=== PATIENT | male | born 1935 | race Caucasian/White ===

== ENCOUNTER 2017-01-08 11:25 | Outpatient (CLI) | payer MEDICARE, OTHER ==
[2013-04-13 09:49] VITALS: BP 144/80
[2017-01-08 11:49] LABS: MEAN CORPUSCULAR HEMOGLOBIN 29.6 pg (28.0-34.0); MEAN CORPUSCULAR VOLUME 89.7 fl (80.0-100.0)
[2017-01-08 12:09] LABS: eGFR (African) > 60; eGFR (Non-African) > 60
--- NOTE | 2017-01-08 16:51 | Diagnostic Imaging Report ---
[facility] [address] [facility].[address] [address] Report Submission Date: January 08, 2017 4:07:41 PM CDT Patient Study Name: AURORA BOSTON Date: January 08, 2017 12:17:49 PM CDT Modality Type: CT\SR Gender: M Description: CT NECK SOFT TISSUE W/ : 37 Institution: [facility] Physician: DELROY HERNANDEZ CT of the neck soft tissue technique with IV contrast Clinical history: Sore throat for 3 days with difficulty swallowing , pain on the right side of the neck . 90 mL omnipaque 350 Radiation dose DLP 299 There is 2.7 cm mass with an enhanced capsule and somewhat low density center in the right tonsillar region and slight superior to it consistent with either tumor or a abscess. No significant compromise of the airway. Nasopharyngeal region is normal. Aryepiglottic folds are normal. Submandibular and parotid glands are normal. Impression: 2.7 cm a mass in the right side of the tonsillar region and the right lateral pharyngeal wall consistent with an abscess or tumor, please correlate clinically . There is small lymph nodes in both side of the neck No compromise of the airway at this time Electronically signed on January 08, 2017 4:07:41 PM CDT by: Oliver SCHMITZ
== END 2017-01-08 11:26 ==
LOC: RAD 11:25
PROVIDERS: ATTEND Physician Assistant
DX: J36 Peritonsillar abscess (principal); R22.1 Localized swelling, mass and lump, neck; Z98.890 Other specified postprocedural states
CPT/HCPCS: 36415; 70491; 82565; 85027; Q9966

== ENCOUNTER 2017-01-09 10:33 | Outpatient (CLI) | payer MEDICARE, OTHER ==
[2013-04-13 09:49] VITALS: BP 144/80
--- NOTE | 2017-01-09 14:33 | OP Clinic Progress Note ---
REASON FOR VISIT: This 81-year-old man is seen with a 3 to 5-day history of progressive right- sided throat discomfort. He has a mass more on the upper portion of his tonsil and it is exudative. He does not smoke or drink by history. Looking back, his notes that over the last several weeks, he has begun to snore more. Quite appropriately, a CT was obtained. He has a fairly large and somewhat cystic mass that appears to have some lucency and the middle has potentially a necrosis or a cystic change that would be avascular. I reviewed the CT with both Regis and his . Additionally, I looked with a flexible fiberoptic nasal pharyngoscope and laryngoscope. There is some bulging of the soft palate superior and posterior. Further inferior, I do not see a mass or tumor and the vocal cords move well. PLAN: I went over risks, problems, and complications. Overall, this appears to be a clear mass in the upper portions of the tonsil protruding up into the soft palate. There is some degree of cystic-ness of it and roundness of it and gives some suggestion that it might be a benign mass or it could be a malignant tumor that has some central necrosis. Options for the diagnostic studies or needle sticking are gone over. I think that removing the mass with a tonsillectomy with a superior pharyngectomy-type of surgery would be appropriate. The options of doing it in [place] or [place] and certainly they are welcome for additional opinions surgically and medically and to go to the [facility] or any place they choose. Regis and his discussed their issues and choices and have chosen to go ahead with the tonsillectomy, as opposed to needle sticking. There may be some inflammation around it. I gave him a course of Keflex in the interim to see if it may reduce any type of inflammation around this. The possibility of bleeding , returning to the operating, transfusion, and as with most tonsillectomies or pharyngeal space surgery were carefully covered. Dysphonia and extra ear pain and some palatal dysfunctions are covered in addition. cc: JW Morrison
== END 2017-01-09 10:34 ==
LOC: ENT 10:33
PROVIDERS: ATTEND Otolaryngology
DX: R22.9 Localized swelling, mass and lump, unspecified (principal); R07.0 Pain in throat
CPT/HCPCS: 92511; G0463

== ENCOUNTER 2017-01-11 07:02 | Outpatient (CLI) | payer MEDICARE, OTHER ==
[2013-04-13 09:49] VITALS: BP 144/80
[2017-01-11 07:54] LABS: EOSINOPHILS % 1.9 % (0.0-6.8); MEAN CORPUSCULAR HEMOGLOBIN 30.2 pg (28.0-34.0); MEAN CORPUSCULAR VOLUME 88.1 fl (80.0-100.0); MONOCYTES % 9.8 % (0.0-11.0); NEUTROPHILS # 2.9 # k/uL (1.4-7.7)
[2017-01-11 08:02] LABS: eGFR (African) > 60; eGFR (Non-African) > 60
== END 2017-01-11 07:03 ==
LOC: LAB 07:02
PROVIDERS: ATTEND Otolaryngology
DX: J36 Peritonsillar abscess (principal); Z01.812 Encounter for preprocedural laboratory examination; Z01.810 Encounter for preprocedural cardiovascular examination
CPT/HCPCS: 36415; 80048; 85025

== ENCOUNTER 2017-01-23 15:06 | Outpatient (CLI) | payer MEDICARE, OTHER ==
[2013-04-13 09:49] VITALS: BP 144/80
--- NOTE | 2017-01-24 13:40 | OP Clinic Progress Note ---
REASON FOR VISIT: Regis is seen in follow up accompanied by his . He had a right-sided tonsillectomy about 6 days ago for a really large mass in the upper half of his right tonsil. In the interim, he has done fairly well. He has done well with his pain management. There has been no bleeding. He is able to swallow. Principally, he takes Tylenol. I reviewed the pathology report with him and with his . There is no malignancy and I have, again, reviewed that with him. PLAN: At this point, I do not need to see him in follow up. He does have a small amount of thrush on his tongue and there is a little bit of probable fungal coating in his tonsillar fossa and I gave him Nystatin. He is to return to the continued care of Dr. Coelho. cc: Dr. Oliver SCHMITZ
== END 2017-01-23 15:07 ==
LOC: ENT 15:06
PROVIDERS: ATTEND Otolaryngology
DX: Z98.890 Other specified postprocedural states (principal); Z09 Encounter for follow-up examination after completed treatment for conditions other than malignant neoplasm
CPT/HCPCS: G0463

== ENCOUNTER 2017-02-27 07:57 | Outpatient (CLI) | payer MEDICARE, OTHER ==
[2013-04-13 09:49] VITALS: BP 144/80
[2017-02-27 08:46] LABS: eGFR (African) > 60; eGFR (Non-African) > 60
== END 2017-02-27 08:00 ==
LOC: LAB 07:57
PROVIDERS: ATTEND Family Medicine
DX: E78.00 Pure hypercholesterolemia, unspecified (principal); R73.9 Hyperglycemia, unspecified
CPT/HCPCS: 36415; 80053; 80061; 83036

== ENCOUNTER 2018-03-10 07:07 | Outpatient (CLI) | payer MEDICARE, OTHER ==
[2013-04-13 09:49] VITALS: BP 144/80
[2018-03-10 07:29] LABS: BASOPHILS % 0.7 (0.0-1.5); EOSINOPHILS % 2.5 % (0.0-6.8); MEAN CORPUSCULAR HEMOGLOBIN 30.8 pg (28.0-34.0); MEAN CORPUSCULAR VOLUME 89.3 fl (80.0-100.0); MONOCYTES % 7.1 % (0.0-11.0); NEUTROPHILS # 2.8 # k/uL (1.4-7.7)
[2018-03-10 07:46] LABS: eGFR (African) > 60; eGFR (Non-African) > 60
== END 2018-03-10 07:09 ==
LOC: LAB 07:07
PROVIDERS: ATTEND Family Medicine
DX: E78.00 Pure hypercholesterolemia, unspecified (principal)
CPT/HCPCS: 36415; 80053; 80061; 85025

== ENCOUNTER 2018-03-23 12:20 | Emergency (ER) | payer MEDICARE, OTHER ==
--- NOTE | 2018-03-23 12:51 | ED Physician Documentation ---
General Adult - HISTORIAN Historian: patient, spouse - HPI Stated Complaint: lesion L inner thigh Chief Complaint: General Adult Onset: days ago (5) Timing: still present Severity: moderate Further Comments: yes (Pt is an 82 yo male with lesion/abscess on his L inner thigh. Pt has had this for 5 days. It started as a small sore, but now is larger with some slight induration and ecchymosis. Pt has not had systemic symptoms. No n/v, fever, sob.) - ROS CONST: no problems EYES/ENT: none CVS/RESP: none GI/: none MS/SKIN/LYMPH: other (abscess L inner thigh) - PAST HX Past History: other (prostate surgery, pre-cancerous cells) Allergies/Adverse Reactions: Allergies Allergy/AdvReac Type Severity Reaction Status Date / Time cephalexin [Cephalexin] Allergy Intermediate Rash Verified 03/23/18 12:49 Home Medications: Ambulatory Orders Medication Instructions Recorded Doxycycline Monohydrate 100 mg PO Q2H #20 tablet 03/23/18 - SOCIAL HX Smoking History: non-smoker - FAMILY HX Family History: No - VITAL SIGNS Vital Signs: Vital Signs Temp Pulse Resp BP Pulse Ox 144/80 04/13/13 09:47 - REVIEWED ASSESSMENTS Nursing Assessment Reviewed: Yes Vitals Reviewed: Yes Progress - Progress Progress: Rx Doxycycline 100 mg po bid x 10 days. Avoid prolonged sun exposure. General Adult Physical Exam - PHYSICAL EXAM GENERAL APPEARANCE: no distress EENT: pharynx normal NECK: normal inspection, supple RESPIRATORY: no resp distress, chest non-tender, breath sounds normal CVS: reg rate & rhythm, heart sounds normal ABDOMEN: soft, no organomegaly, normal bowel sounds BACK: normal inspection SKIN: other (3 cm slightly indurated area L inner thigh, with faint surrounding erythema and some ecchymosis, some tenderness) EXTREMITIES: normal range of motion, no evidence of injury NEURO: oriented X3, motor nml, sensation nml Discharge Clincal Impression: early cellulitis Prescriptions: Doxycycline Monohydrate 100 mg PO Q2H #20 tablet Referrals: Oliver Coelho MD [Primary Care Provider] - Condition: Stable Disposition: 01 HOME, SELF-CARE Decision to Admit: NO Decision Time: 12:52
[2018-03-23 12:54] VITALS: BP 169/77
== END 2018-03-23 13:06 | disposition home or self-care (01) ==
LOC: ED 12:20
DX: L03.90 Cellulitis, unspecified (principal)
CPT/HCPCS: 99282

== ENCOUNTER 2018-03-24 13:19 | Outpatient (CLI) | payer MEDICARE, OTHER ==
[2018-03-23 12:54] VITALS: BP 169/77
== END 2018-03-24 13:20 ==
LOC: RT 13:19
PROVIDERS: ATTEND Family Medicine
DX: R06.00 Dyspnea, unspecified (principal)

== ENCOUNTER 2018-07-30 11:01 | Outpatient (CLI) | payer MEDICARE, OTHER ==
--- NOTE | 2018-07-31 04:47 | Diagnostic Imaging Report ---
GRACIA DHALIWAL [facility] [address] [facility].[address] [address] Report Submission Date: Jul 30, 2018 1:22:00 PM [employer]OX [employer]KER [employer]OD Patient Study Name: AURORA BOSTON Date: Jul 30, 2018 11:12:11 AM [employer]OX [employer] Modality Type: DX Gender: M Description: LOWER EXTREMITY : 37 Institution: [facility] Physician: GRACIA DHALIWAL Right ankle History: Ankle swelling for 8-9 months. No injury Three views of the right ankle demonstrate generalized soft tissue swelling diffusely about the ankle. No osseous abnormalities of the ankle are noted. The talar dome and ankle mortise are intact. There is a small plantar calcaneal spur. The subtalar joint is not well profiled. Impression: Generalized soft tissue swelling about the ankle. The subtalar joint is not well profiled. Otherwise, no osseous abnormalities are noted aside from a small plantar calcaneal spur. Electronically signed on Jul 30, 2018 1:22:00 PM [employer]OX [employer] by: Fadia SCHMITZ
== END 2018-07-30 11:03 ==
LOC: RAD 11:01
PROVIDERS: ATTEND Family Medicine
DX: M25.471 Effusion, right ankle (principal); M77.31 Calcaneal spur, right foot
CPT/HCPCS: 73610

== ENCOUNTER 2018-08-05 10:04 | Outpatient (CLI) | payer MEDICARE, OTHER ==
--- NOTE | 2018-08-05 14:31 | Diagnostic Imaging Report ---
GRACIA DHALIWAL [facility] [address] [facility].[address] [address] Report Submission Date: Aug 05, 2018 11:10:41 AM SCRATCHER TENDER Patient Study Name: AURORA BOSTON Date: Aug 05, 2018 9:10:46 AM SCRATCHER TENDER Modality Type: US Gender: M Description: [facility] : 37 Institution: [facility] Physician: GRACIA DHALIWAL Examination: Ultrasound right vein History: Leg discomfort Findings: Sonographic evaluation of the right lower extremity venous system from the groin to the popliteal fossa inclusive. Normal compressibility. No luminal filling defect. Normal waveforms and response to augmentation. No popliteal region fluid collection. Impression: No evidence for deep venous thrombosis. Electronically signed on Aug 05, 2018 11:10:41 AM SCRATCHER TENDER by: Fabien SCHMITZ
== END 2018-08-05 10:30 ==
LOC: RAD 10:04
PROVIDERS: ATTEND Family Medicine
DX: M25.471 Effusion, right ankle (principal)
CPT/HCPCS: 93971

== ENCOUNTER 2019-02-02 13:53 | Outpatient (CLI) | payer MEDICARE, OTHER ==
[2019-02-11 15:28] LABS: TOTAL PROTEIN SCANNED REPORT
== END 2019-02-02 13:58 | disposition home or self-care (01) ==
LOC: LAB 13:53
PROVIDERS: ATTEND Podiatrist Foot & Ankle Surgery
DX: B35.1 Tinea unguium (principal)
CPT/HCPCS: 36415; 80076

== ENCOUNTER 2019-03-09 09:45 | Outpatient (CLI) | payer MEDICARE, OTHER | END 2019-03-09 09:47 | LOC: LAB 09:45 | PROVIDERS: ATTEND Podiatrist Foot & Ankle Surgery | DX: B35.1 Tinea unguium (principal) | CPT/HCPCS: 36415; 80076 ==

== ENCOUNTER 2019-04-10 07:03 | Outpatient (CLI) | payer MEDICARE, OTHER ==
[2019-04-10 08:00] LABS: BASOPHILS % 0.3 % (0.0-1.5); NEUTROPHILS # 2.9 # k/uL (1.4-7.7)
[2019-04-10 08:01] LABS: HDL 64 mg/dL (>40); eGFR (Non-African) > 60
== END 2019-04-10 07:05 ==
LOC: LAB 07:03
PROVIDERS: ATTEND Family Medicine
DX: G25.0 Essential tremor (principal); E78.5 Hyperlipidemia, unspecified; R53.82 Chronic fatigue, unspecified
CPT/HCPCS: 36415; 80053; 80061; 85025

== ENCOUNTER 2019-04-24 08:47 | Outpatient (CLI) | payer MEDICARE, OTHER ==
--- NOTE | 2019-04-26 14:16 | Diagnostic Imaging Report ---
GOLDIE DEY [facility] [address] [facility] [address] [address] Report Submission Date: Apr 26, 2019 2:11:39 PM CDT Patient Study Name: CARINA WILKINSON Date: Apr 26, 2019 1:51:11 PM CDT Modality Type: DX Gender: M Description: ANKLE 3 VIEWS OR MORE : [birth year] Institution: [facility] Physician: GOLDIE DEY Left ankle 3 views Clinical history: Injury No visible fracture, dislocation or bone destruction. No joint effusion. No visible radiopaque foreign bodies. Impression: Normal left ankle Electronically signed on Apr 26, 2019 2:11:39 PM CDT by: Oliver SCHMITZ
== END 2019-04-24 09:10 ==
LOC: RAD 08:47
PROVIDERS: ATTEND Family Medicine
DX: G20 Parkinson's disease (principal)
CPT/HCPCS: 70450

== ENCOUNTER 2019-06-30 08:29 | Outpatient (CLI) | payer MEDICARE, OTHER ==
[2019-06-30 09:28] LABS: HDL 61 mg/dL (>40); eGFR (Non-African) > 60
== END 2019-06-30 08:34 ==
LOC: LAB 08:29
PROVIDERS: ATTEND Family Medicine
DX: E78.00 Pure hypercholesterolemia, unspecified (principal)
CPT/HCPCS: 36415; 80053; 80061